=== PATIENT | male | born 1980 | race Caucasian/White ===

== ENCOUNTER 2016-10-25 14:41 | Observation (INO) | payer OTHER ==
--- NOTE | ~2016-10-25 | EKG ---
PATIENT: YVES FOX UNIT #: [id number] Ventricular Rate: 78 BPM Atrial Rate: 78 BPM P-R Interval: 136 ms QRS Duration: 96 ms Q-T Interval: 378 ms QTC Calculation(Bezet): 430 ms P [place]: 42 degrees Calculated R [place]: 22 degrees Calculated T [place]: 35 degrees Diagnosis Line: Normal sinus rhythm Diagnosis Line: Normal ECG Diagnosis Line: When compared with ECG of 25-OCT-2016 14:02, Diagnosis Line: (unconfirmed) Diagnosis Line: Fusion complexes are no longer Present Diagnosis Line: Premature ventricular complexes are no longer Diagnosis Line: Present Diagnosis Line: Vent. rate has decreased BY 39 BPM Diagnosis Line: Confirmed by THIEN PUENTE MD ([id number]) on 10/26/2016 Diagnosis Line: 4:47:32 PM INTERPRETING MD: CINDI GAYLE
--- NOTE | ~2016-10-25 | CR72 ---
[facility] A Service [facility] RADIOLOGY TEXT RESULTS PATIENT: YVES FOX LOCATION: [facility] 319-01 : [birth year] UNIT #: [id number] AGE: [address]: Hipolito Haney MD SEX: M ORDER DR: [id number] [place], [place] [address] [id number] MR#: [id number] Acc #: [id number] NAME: YVES FOX : 1980 SEX: M STUDY DATE/TIME: 10/25/2016 14:30 UNIT: [facility] ROOM: STUDY DESCRIPTION: CR Chest Single View Portable Attending Physician: Eric Jimenez M.D. Ordering Physician: Eric Jimenez M.D. Primary Care Physician: No Primary Care Physician MEDICAL IMAGING REPORT This report is preliminary unless electronic signature is present EXAM Single view of the chest. DATE OF EXAM 10/25/2016 at 1430 hours. COMPARISON None. HISTORY Left arm numbness since 9 a.m. today, shortness of air. FINDINGS Single view of the chest was obtained. A single AP view of the chest shows both lungs to be clear. The heart is normal in size. The mediastinal contour is normal. No significant bone abnormalities are seen. IMPRESSION Normal single view of the chest. Dictated by... Janeen Beltrán M.D. THIS IS AN ELECTRONICALLY VERIFIED REPORT Janeen Beltrán M.D. at 10/27/2016 1:51 PM CPR/jt TD: 10/25/2016 15:33 JOB #: [id number] MEDICAL IMAGING REPORT [facility] A [facility] RADIOLOGY TEXT RESULTS PATIENT: YVES FOX LOCATION: [facility] 319-01 : [birth year] UNIT #: [id number] AGE: [address]: Hipolito Haney MD SEX: M ORDER DR: Page 1 of 1 COPY
--- NOTE | ~2016-10-25 | DS ---
Unit #: [id number] #: [id number] Patient: YVES FOX [id number] [address] [place], [place] [address] [id number] I MR#: [id number] NAME: YVES FOX ROOM: 319 Age: 36 Sex: M Admission Date: 10/25/2016 : 1980 Discharge Date: Attending Physician: Hipolito Haney M.D. Primary Care Physician: No Primary Care Physician DISCHARGE SUMMARY SHORT STAY SUMMARY HISTORY OF PRESENT ILLNESS This is a 36-year-old white male, new to our group with no significant past medical history besides obesity with a BMI of 46. Patient denies hypertension, hyperlipidemia, diabetes mellitus, myocardial infarction, or cerebrovascular accident. However, he has not followed up with a primary care provider in several years. He denies any previous cardiac testing. Risk factors for ischemic heart disease include family history. His father had coronary stents placed in his 50s. The patient is a lifetime nonsmoker and only experimented with tobacco in his early teenage years. He presented to the emergency department with complaints of lightheadedness and nausea and vomiting. Yesterday morning, he woke up around 9:30 and felt lightheaded and dizzy. He was also short of breath. He noted that his stomach was upset but he thought this was due to eating scallops the previous evening. He went out shopping and began vomiting. He vomited multiple times. In addition to these complaints, he also had some pain that went across his chest. The pain was described as tightness and pressure. There was no radiation to the neck, jaws, shoulders, or arms. There were no associated symptoms of diaphoresis. The pain lasted for a couple hours. He went home from shopping and sat down. His girlfriend, who is a manager medical affairs in our office, checked his heart rate and blood pressure. His heart rate was very fast and could not be counted. He was brought to the emergency department for further evaluation. Initial EKG revealed supraventricular tachycardia with a rate in the 190s. He was given 6 mg of IV adenosine and converted to sinus rhythm/sinus tachycardia. He was given one dose of Zofran followed by sublingual nitroglycerin. Labs revealed normal function and electrolytes. Glucose level was initially 132. Initial troponin was negative but then peaked at 0.18. TSH and lipid profile were normal. Hemoglobin A1c was sent to lab and remains pending. Repeat troponin was obtained this morning and has improved to 0.09. The patient is currently asymptomatic and is resting comfortably. Telemetry now reveals sinus rhythm. He did have an episode of a 2-second pause while sleeping. He is known to snore at night and have periods of apnea. He denies any previous sleep studies. He is in the process of obtaining a primary care provider. PAST MEDICAL HISTORY 1. Obesity with a BMI of 46. 2. Family history of coronary artery disease. 3. Nonsmoker. PAST SURGICAL HISTORY Unit #: [id number] #: [id number] Patient: YVES FOX None, except for stitches on his left leg, forehead, and scalp. HOME MEDICATIONS None. ALLERGIES No known drug allergies. 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 He is a nonsmoker but did experiment with tobacco at the age of 16. There are no reports of illicit drug use. He rarely drinks alcohol. FAMILY HISTORY Significant for heart disease. His father underwent coronary stent placement in his 50s. His mother has diabetes. REVIEW OF SYSTEMS A 10-point review of systems negative except for details noted above in HPI. PHYSICAL EXAMINATION VITAL SIGNS: Temperature 97.2, pulse 95, blood pressure 131/84. CONSTITUTIONAL: This is a 36-year-old white male in no acute distress. SKIN: Warm and dry. NECK: Supple. No jugular vein distention. No hepatojugular reflux. Normal carotid upstrokes. No carotid bruits auscultated. HEART: S1, S2. Regular rate and rhythm. No murmurs, rubs, or gallops. LUNGS: Bilateral breath sounds have good air entry throughout all lung pan. Respirations even and nonlabored. No rales, rhonchi, or wheezes. ABDOMEN: Obese, soft, nontender, nondistended. Positive bowel sounds auscultated x4 quadrants. No ascites noted. EXTREMITIES: Bilateral lower extremities have no pretibial pitting edema. DP and PT pulses 2+. Capillary refill less than 3 seconds. DIAGNOSTIC STUDIES LABORATORY: White blood cell count 9.9, hemoglobin 14, hematocrit 42.6, platelets 220,000. Sodium 138, potassium 4.1, chloride 101, CO2 of 28, BUN 14, creatinine 0.8, glucose 104. AST 31, ALT 41, alkaline phosphatase 64. Troponin 0.05, 0.18, and 0.09. Hemoglobin A1c pending. Total cholesterol 129, triglycerides 70, LDL 78, HDL 37. TSH 1.34. INR 0.9. IMAGING: Chest x-ray reveals no acute findings. CARDIOVASCULAR: Initial EKG revealed supraventricular tachycardia with a ventricular rate of 197 beats per minute, low voltage QRS noted in inferolateral leads, poor R-wave progression in the anterior leads, QTc 413 ms. Repeat EKG reveals sinus rhythm with a ventricular rate of 78 beats per minute, improved R-wave progression. No acute ST or T wave changes, QTc 430 ms. A 2D echocardiogram on October 26, 2016, reveals a normal ejection fraction and valves, normal right ventricular systolic pressure, mild LVH. IMPRESSION Unit #: [id number] #: [id number] Patient: YVES FOX 1. Gastritis. 2. Paroxysmal supraventricular tachycardia, now in sinus rhythm. 3. Morbid obesity. 4. Hypertension with mild left ventricular hypertrophy on 2D echocardiogram, October 26, 2016. 5. Obstructive sleep apnea. 6. Rule out gallbladder disease. PLAN 1. The patient presented to the hospital with complaints of lightheadedness, shortness of breath, and vomiting. He was found to have paroxysmal supraventricular tachycardia with rates in the 190s to 220s. 2. He was given a dose of IV adenosine and converted to sinus rhythm. 3. TSH level is normal. 4. A 2D echocardiogram reveals normal valves and ejection fraction. There is some mild LVH which is from probable high blood pressure. 5. The patient has been started on a low-dose beta hayden and JU inhibitor. 6. He has been instructed to lose weight by means of exercise and reduced caloric intake. 7. He will need an outpatient sleep study as he likely has sleep apnea. 8. If abdominal pain or vomiting continues, he could be worked up for gallbladder disease as an outpatient. 9. Once the patient loses weight, he could be considered for a nuclear stress test to rule out ischemic disease. 10. He is stable and will be discharged home later today. He may return to work on October 28, 2016 with no restrictions. 11. Prescriptions have been provided for metoprolol and lisinopril. Dictated by... Kortney Hess APRN for Daryn Soria TD: 10/26/2016 13:17 JOB #: [id number] DISCHARGE SUMMARY Page 1 of 1 X X DISCHARGE SUMMARY
--- NOTE | ~2016-10-25 | EKG ---
PATIENT: YVES FOX UNIT #: [id number] Ventricular Rate: 117 BPM Atrial Rate: 117 BPM P-R Interval: 124 ms QRS Duration: 92 ms Q-T Interval: 288 ms QTC Calculation(Bezet): 401 ms P [place]: 46 degrees Calculated R [place]: 29 degrees Calculated T [place]: 51 degrees Diagnosis Line: Sinus tachycardia Diagnosis Line: Premature ventricular complexes Diagnosis Line: Abnormal ECG Diagnosis Line: When compared with ECG of 25-OCT-2016 13:57, Diagnosis Line: (unconfirmed) Diagnosis Line: Fusion complexes are now Present Diagnosis Line: Premature ventricular complexes are now Present Diagnosis Line: Vent. rate has decreased BY 80 BPM Diagnosis Line: Confirmed by THIEN PUENTE MD ([id number]) on 10/26/2016 Diagnosis Line: 4:36:40 PM INTERPRETING MD: CINDI GAYLE
--- NOTE | ~2016-10-25 | EKG ---
PATIENT: YVES FOX UNIT #: [id number] Ventricular Rate: 197 BPM Atrial Rate: 102 BPM QRS Duration: 88 ms Q-T Interval: 228 ms QTC Calculation(Bezet): 413 ms Calculated R [place]: 33 degrees Calculated T [place]: 33 degrees Diagnosis Line: Supraventricular tachycardia Diagnosis Line: Otherwise normal ECG Diagnosis Line: No previous ECGs available Diagnosis Line: Confirmed by THIEN PUENTE MD ([id number]) on 10/26/2016 Diagnosis Line: 4:35:57 PM INTERPRETING MD: CINDI GAYLE
[2016-10-25 14:30] LABS: POC - CKMB 2.5 ng/mL (0.0-7.9); POC - TROPONIN <0.05 ng/mL (<=0.05)
[2016-10-25 14:57] LABS: BASOPHIL% 0.3 % (0-2.5); EOSINOPHIL# 0.3 X10e3 (0-0.7); EOSINOPHIL% 2.5 % (0.0-7.0); HEMATOCRIT 45.2 % (38.0-50.0); HEMOGLOBIN 14.9 gm/dL (13.0-16.0); LYMPHOCYTE# 2.6 X10e3 (1.0-3.5); LYMPHOCYTE% 20.2 % (17.0-45.0); MEAN CELL VOLUME 88.3 FL (83-96); MEAN CORPUSCULAR HGB CONC 32.8 g/dL (30-36); MEAN PLATELET VOLUME 10.6 FL (6.5-11.5); MONOCYTE# 0.9 X10e3 (0-1.0); MONOCYTE% 6.8 % (3.0-12.0); NEUTROPHIL# 8.9 X10e3 (1.5-7.1); NEUTROPHIL% 70.2 % (40-75); PLATELET COUNT 261 X10e3 (140-420); RED BLOOD COUNT 5.12 X10e (3.90-5.60); RED CELL DISTRIBUTION WIDTH 13.3 % (11.0-15.5); WHITE BLOOD COUNT 12.7 X10e3 (4.0-10.5)
[2016-10-25 15:09] LABS: DIFF IND NO
[2016-10-25 15:11] LABS: INR 0.9; PARTIAL THROMBOPLASTIN TIME 27.5 SECONDS (23.5-31.3); PROTHROMBIN TIME (PATIENT) 9.8 SECONDS (9.6-11.5)
[2016-10-25] MEDS ORDERED: NO MEDICATIONS (15:16)
[2016-10-25 15:17] LABS: ALBUMIN SERUM 4.4 g/dL (3.5-5.0); BILIRUBIN, DIRECT 0.1 mg/dL (0.0-0.2); BILIRUBIN,INDIRECT 0.6 mg/dL (0.0-0.9); BILIRUBIN,TOTAL 0.7 mg/dL (0.2-2.0); CALCIUM SERUM 9.4 mg/dL (8.4-10.2); GLOM FILT RATE Estimated 97.1 mL/min (>60); POTASSIUM 4.2 mmol/L (3.5-5.1); PROTEIN TOTAL SERUM 7.9 g/dL (6.0-8.3)
[2016-10-25 15:57] LABS: POC - CKMB 1.9 ng/mL (0.0-7.9); POC - TROPONIN 0.05 ng/mL (<=0.05)
[2016-10-25 22:32] LABS: %MB 3.7 % (0.0-4.0); MB 5.3 ng/ml
[2016-10-26 09:54] LABS: HEMATOCRIT 42.6 % (38.0-50.0); MEAN CELL VOLUME 88.4 FL (83-96); MEAN CORPUSCULAR HGB CONC 32.8 g/dL (30-36); MEAN PLATELET VOLUME 9.5 FL (6.5-11.5); RED BLOOD COUNT 4.82 X10e (3.90-5.60); RED CELL DISTRIBUTION WIDTH 13.5 % (11.0-15.5); WHITE BLOOD COUNT 9.9 X10e3 (4.0-10.5)
[2016-10-26 10:34] LABS: BUN/CREATININE RATIO 17.5; CALCIUM SERUM 9.2 mg/dL (8.4-10.2); CREATININE SERUM 0.8 mg/dL (0.6-1.4); GLOM FILT RATE Estimated 115.8 mL/min (>60); POTASSIUM 4.1 mmol/L (3.5-5.1)
[2016-10-26 11:01] LABS: %MB 3.8 % (0.0-4.0); MB 4.6 ng/ml
[2016-10-26 11:53] LABS: %MB 3.7 % (0.0-4.0); MB 4.7 ng/ml
[2016-10-26] MEDS ORDERED: LOPRESSOR PO (14:50)
[2016-10-26] MEDS ORDERED: LISINOPRIL10 MG (14:50)
[2016-10-26] MEDS ORDERED: ASPIRIN EC81 M1 PO (14:51)
[2016-10-26] MEDS ORDERED: ZESTRIL10 MG PO (14:52)
== END 2016-10-26 16:30 | disposition home or self-care (01) ==
LOC: CED 14:41 → CEDOF 18:06 → C3A PCU 20:20
PROVIDERS: Emergency Medicine; Internal Medicine Cardiovascular Disease
DX: K29.70 Gastritis, unspecified, without bleeding (principal); I47.1 Supraventricular tachycardia; R07.9 Chest pain, unspecified; E66.01 Morbid (severe) obesity due to excess calories; Z68.42 Body mass index [BMI] 45.0-49.9, adult; I10 Essential (primary) hypertension; G47.33 Obstructive sleep apnea (adult) (pediatric); Z82.49 Family history of ischemic heart disease and other diseases of the circulatory system; Z83.3 Family history of diabetes mellitus
CPT/HCPCS: 36415; 71010; 80048; 80061; 80076; 82550; 82553; 83036; 84443; 84484; 85025; 85027; 85610; 85730; 93005; 93306; 96374; 96375; 99291; G0378; J0153; J2405